=== PATIENT | male | born 2000 | race Caucasian/White ===

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

== ENCOUNTER 2022-05-19 22:23 | Emergency (ER) | payer BC ==
[~2022-05-19] VITALS: Ht 182.9 cm; Wt 87.3 kg
[2022-05-19 23:52] LABS: URINE WBC 0 /hpf (0-3)
[2022-05-19 23:57] LABS: BASO # 0.03 K/mm3 (0.02-0.10); EOS # 0.16 K/mm3 (0.04-0.40); EOS % 2.1 % (0.0-4.0); HEMATOCRIT 42.3 % (36.0-47.0); HEMOGLOBIN 14.9 g/dL (12.5-16.1); LYMPH# 2.55 K/mm3 (1.50-4.00); MEAN CELL VOLUME 85 fl (78-95); MEAN CORPUSCULAR HEMOGLOBIN 30 pg (26-32); MEAN CORPUSCULAR HGB CONC 35 g/dL (33-37); MONO # 0.73 K/mm3 (0.20-0.80); NEU # 4.13 K/mm3 (1.40-6.50); PLATELET COUNT 243 K/mm3 (130-400); RED BLOOD COUNT 4.98 M/mm3 (4.20-5.60); WHITE BLOOD COUNT 7.6 K/mm3 (4.8-10.8)
[2022-05-20 00:01] LABS: ALBUMIN 4.5 g/dL (3.5-5.0); POTASSIUM 3.7 mmol/L (3.5-5.1)
[2022-05-20 00:02] LABS: CALCIUM 9.4 mg/dL (8.3-10.5)
[2022-05-20 00:04] LABS: TOTAL PROTEIN 7.4 g/dL (6.4-8.3)
[2022-05-20 00:05] LABS: TOTAL BILIRUBIN 0.5 mg/dL (0.2-1.2)
[2022-05-20 00:12] LABS: URINE COLOR LT YELLOW
[2022-05-20 00:13] LABS: URINE APPEARANCE CLEAR; URINE BILIRUBIN NEGATIVE (NEGATIVE); URINE BLOOD NEGATIVE (NEGATIVE); URINE GLUCOSE NEGATIVE (NEGATIVE); URINE KETONE NEGATIVE (NEGATIVE); URINE LEUKOCYTE ESTERASE NEGATIVE (NEGATIVE); URINE NITRATE NEGATIVE (NEGATIVE); URINE PROTEIN(semi-quant) NEGATIVE (NEGATIVE); URINE UROBILINOGEN NORMAL (NORMAL)
[2022-05-20 01:07] VITALS: BP 148/88
== END 2022-05-20 01:07 | disposition home or self-care (01) ==
LOC: ED 22:23
PROVIDERS: Physician Assistant
DX: R55 Syncope and collapse (principal)